=== PATIENT | female | born 1955 | race Caucasian/White ===

== ENCOUNTER 2016-10-09 07:46 | Emergency (ER) | payer BC ==
[~2016-10-09] VITALS: Ht 157.5 cm; Wt 103.0 kg
[2016-10-09 07:54] VITALS: BP 158/97; PULSE 97; RESP 16; TEMP 98.7; O2SAT 94
[2016-10-09 08:10] VITALS: BP 179/83; PULSE 87; RESP 18; O2SAT 96
[2016-10-09] MEDS ORDERED: ZOFR4TAB PO (08:17)
[2016-10-09] MEDS ORDERED: TRAM50TA PO (08:17)
--- NOTE | 2016-10-09 08:22 | PD ---
HPI Chief Complaint: Headache Time Seen by Provider: 08:07 Travel History International Travel<30 days: No Contact w/Intl Traveler<30days: No Traveled to known affect area: No History of Present Illness HPI The patient was seen and examined in the presence of the nurse. This patient is in town for 3 month period. For the last 2 weeks she has had daily headaches. They're frontal in location. No thunderclap onset. No head injury or fever. Symptoms severity is moderate. She went to a walk-in center and got tramadol and Zofran and doesn't get relief from that. She does have stress and anxiety problems and is not sure if that is related. He complains of nausea. No vomiting or diarrhea. No alleviating factors. PFSH Past Medical History ?: Not Social History Alcohol Use: No Tobacco Use: No Substance Use: No Allergies-Medications (Allergen,Severity, Reaction): Coded Allergies: No Known Allergies (Unverified , 10/09/16) Reported Meds & Prescriptions Reported Meds & Active Scripts Active Phenergan (Promethazine HCl) 25 Mg Tab 25 Mg PO Q6H PRN Reported Zofran (Ondansetron HCl) 4 Mg Tab 4 Mg PO Q6HR PRN Tramadol (Tramadol HCl) 50 Mg Tab 50 Mg PO Q6H PRN Review of Systems General / Constitutional: No: Fever Eyes: No: Visual changes HENT: Positive: Headaches Cardiovascular: No: Chest Pain or Discomfort Respiratory: No: Shortness of Breath Gastrointestinal: Positive: Nausea, No: Abdominal Pain Genitourinary: No: Dysuria Musculoskeletal: No: Pain Skin: No Rash Neurologic: Positive: Headache, No: Weakness Psychiatric: No: Depression Endocrine: No: Polydipsia Hematologic/Lymphatic: No: Easy Bruising Physical Exam Narrative GENERAL: Well-nourished, well-developed patient with headache and nausea . SKIN: Warm and dry. HEAD: Atraumatic. Normocephalic. EYES: Pupils equal and round. No scleral icterus. No injection or drainage. ENT: No nasal bleeding or discharge. Mucous membranes pink and moist. NECK: Trachea midline. No JVD. No meningeal signs CARDIOVASCULAR: Regular rate and rhythm. No murmur appreciated. RESPIRATORY: No accessory muscle use. Clear to auscultation. Breath sounds equal bilaterally. GASTROINTESTINAL: Abdomen soft, non-tender, nondistended. Hepatic and splenic margins not palpable. MUSCULOSKELETAL: No obvious deformities. No clubbing. No cyanosis. No edema. NEUROLOGICAL: Awake and alert. No obvious cranial nerve deficits. Motor grossly within normal limits. Normal speech. PSYCHIATRIC: Appropriate mood and affect; insight and judgment normal. Data Data Last Documented VS Vital Signs Date Time Temp Pulse Resp B/P Pulse Ox O2 Delivery O2 Flow Rate FiO2 10/09/16 09:00 78 18 164/84 96 Room Air 10/09/16 07:54 98.7 Orders Promethazine Inj (Phenergan Inj) (10/09/16 08:30) Ct Brain W/O Iv Contrast(Rout) (10/09/16 ) [facility] Medical Decision Making Medical Screen Exam Complete: Yes Emergency Medical Condition: Yes Medical Record Reviewed: Yes Differential Diagnosis Differential diagnosis includes migraine, tension headache, cluster headache, meningitis. Narrative Course I have reviewed the patient's electronic medical record. [place], never been here before. Patient is neurologically intact. Presentation is not consistent with subarachnoid hemorrhage or CVA or meningitis Brain CT is normal Gave her Phenergan injection Wrote her some prescription for symptom relief. I didn't find anything objective to treat Recommend primary care follow-up since she is going to be here for 10 more weeks Diagnosis Primary Impression: Headache Qualified Code: G44.209 - Acute non intractable tension-type headache Additional Impression: Nausea alone Additional Instructions: The patient was advised to follow up with their physician and return if they worsen. The patient was warned about potential sedation for the medications they will receive on prescription. Med/Other Pt SpecificInfo: Prescription(s) given Scripts Promethazine (Phenergan)25 Mg Tab25 Mg PO Q6H PRN (Nausea/Vomiting) #15 TAB Ref 0 Prov:Jagdish Reis MD 10/09/16 Disposition: 01 DISCHARGE HOME Condition: Stable Jagdish Reis MD Oct 09, 2016 08:21
[2016-10-09] MEDS ORDERED: PROMETHAZINE INJ 25 MG/ML VIAL IM ONE (08:30)
[2016-10-09 09:00] VITALS: BP 164/84; PULSE 78; RESP 18; O2SAT 96
--- NOTE | 2016-10-09 09:01 | RADHPO ---
EXAM DATE/TIME: 10/09/2016 08:43 [facility] COMPARISON: No previous studies available for comparison. INDICATIONS : Frontal cephalgia and nausea for two weeks. RADIATION DOSE: 65.63 CTDIvol (mGy) MEDICAL HISTORY : None SURGICAL HISTORY : None. ENCOUNTER: Initial ACUITY: 2 weeks PAIN SCALE: 5/10 LOCATION: Bilateral frontal head TECHNIQUE: Multiple contiguous axial images were obtained of the head. Using automated exposure control and adj ustment of the mA and/or kV according to patient size, radiation dose was kept as low as reasonably a chievable to obtain optimal diagnostic quality images. FINDINGS: CEREBRUM: The ventricles are normal for age. No evidence of midline shift, mass lesion, hemorrhage or acute in farction. No extra-axial fluid collections are seen. POSTERIOR FOSSA: The cerebellum and brainstem are intact. The 4th ventricle is midline. The cerebellopontine angle i s unremarkable. EXTRACRANIAL: The visualized portion of the orbits is intact. SKULL: The calvaria is intact. No evidence of skull fracture. CONCLUSION: Normal examination. Piotr Ojeda MD on October 09, 2016 at 8:59 Board Certified Radiologist. This report was verified electronically.
[2016-10-09] MEDS ORDERED: PROM25TA5 PO (09:06)
[2016-10-09] MEDS ORDERED: TYLETAB34 PO (09:17)
== END 2016-10-09 09:38 | disposition home or self-care (01) ==
LOC: PHED 07:46
DX: R51 Headache (principal)
CPT/HCPCS: 70450; 96372; 99284; J2550